=== PATIENT | male | born 1945 | race Two or more races ===

== ENCOUNTER 2024-09-13 08:30 | Day surgery (SDC) | payer OTHER ==
[~2024-09-13] VITALS: Ht 175.3 cm; Wt 70.3 kg
[2024-09-13 10:08] VITALS: PULSE 76; RESP 15; TEMP 98.7; O2SAT 100
--- NOTE | 2024-09-13 10:08 | DVHHP2 ---
GI H&P Pre-Op Assessment Date: 09/13/24 Chief complaint: lower abdominal pain HPI: per clinic note Past medical history: per clinic note Past surgical history: per clinic note Family history: per clinic note Physical exam: General: NAD, AAOX3 HEENT: PERRL, no scleral icterus, normal hearing, gums without lesions or bleeding, oropharynx clear without erythema or exudate. Neck: Supple without enlargement of the thyroid, or lymphadenopathy. Chest: Normal size and shape, no tenderness, lung castillo clear to auscultation and percussion, nonlabored breathing. Heart: RRR, no murmur Abdomen: non-distended, no tenderness to palpation, +BS, no hepatosplenomegaly Extremities: no edema Neurological: CN II-XII intact, sensation intact in all extremities, 5+ strength in all extremities Skin: No rashes, No jaundice Assessment: - lower abdominal pain Plan: - Colonoscopy - Risks (bleeding, infection, perforation, reaction to sedation medications and cardiopulmonary arrest) and benefit of the procedure were explained to patient. Patient agrees to undergo the procedure. MICHELLE GALICIA MD Sep 13, 2024 10:08
--- NOTE | 2024-09-13 10:09 | DVHDS2 ---
Physician Discharge Progress N Final Diagnosis: Internal hemorrhoids Operations or Procedures: Operations or Procedures Colonoscopy Condition on Discharge: Good Disposition: Home Discharge Instructions: Diet: Regular Activity: No Restrictions, As Tolerated Medications: Resume previous home medications Follow Up Care: Discharge Statement: "Patient was advised to return to the ER or call 911 if any headaches, dizziness, shortness of breath, chest pain, abdominal pain, bleeding, fevers, or worsening of medical condition. Patient was counseled about treatment plan, medications, possible side effects, patientverbalized understanding. All questions were answered to the best of my ability. This discharge took greater then 30 minutes in planning, reviewing documentation, counseling the patient, and discussing with other team members." MICHELLE GALICIA MD Sep 13, 2024 10:09
--- NOTE | 2024-09-13 10:09 | DVHOP2 ---
Operative Report DATE OF OPERATION: 09/13/24 PROCEDURE: Colonoscopy. PREOPERATIVE INDICATION: The patient is a 79 -year-old male undergoing colonoscopy for lower abdominal pain. POSTOPERATIVE DIAGNOSES: 1. Internal hemorrhoids PROCEDURE PERFORMED BY: Arthur Salinas M.D. SCOPE: Olympus videocolonoscope. ASA CLASS: 2 PREOPERATIVE MEDICATIONS: MAC with Redd MARTÍNEZ PROCEDURE IN DETAIL: After obtaining an informed consent, the patient was placed on left lateral decubitus position. He was then sedated with the above medications. A rectal examination was performed that was normal. The col onoscope was then passed through the anus into the rectosigmoid and through the descending, transverse, and ascending colon up to the cecum with visualization of the appendiceal orifice, base of the cecum and the ileocecal valve. No mass or polyp was observed. There were internal hemorrhoids. The colonoscope was then withdrawn. The patient tolerated the procedure well without difficulty. WITHDRAWAL TIME: 6 minutes QUALITY OF THE PREP: Yoder Bowel Prep score: 7 COMPLICATIONS : None SPECIMENS: None DISPOSITION: D/C to home PLAN: 1. Patient will follow up in GI clinic. ARTHUR SALINAS MD Sep 13, 2024 10:09
[2024-09-13 10:38] VITALS: BP 137/69; PULSE 71; RESP 12; O2SAT 98
--- NOTE | 2024-09-30 12:12 | ECG ---
[facility] Test Date: 2024-09-13 Test Time: 09:29:03 Pat Name: JACKIE DONAHUE Department: Room: Gender: M Legal Paraprofessional: MORENO : 1945 Requested By: MICHELLE GALICIA Order Number: [id number] Reading MD: Veto Pena Measurements Intervals [place] Rate: 89 P: 84 NV: 174 QRS: -3 QRSD: 88 T: 69 QT: 382 QTc: 464 Interpretive Statements Sinus rhythm with marked sinus arrhythmia Possible Left atrial enlargement Prolonged QT Electronically Signed On 10-01-2024 15:34:46 PST by Veto Pena Please click the below link to view image of tracing.
== END 2024-09-13 10:43 | disposition home or self-care (01) ==
LOC: GI 08:30
PROVIDERS: ATTEND Internal Medicine Gastroenterology
DX: K64.8 Other hemorrhoids (principal); R10.30 Lower abdominal pain, unspecified; Z90.49 Acquired absence of other specified parts of digestive tract; Z87.891 Personal history of nicotine dependence; Z98.890 Other specified postprocedural states
CPT/HCPCS: 45378; J7030